=== PATIENT | female | born 1945 | race Caucasian/White ===

== ENCOUNTER 2018-06-24 22:05 | Emergency (ER) | payer OTHER ==
[~2018-06-24] VITALS: Ht 157.5 cm; Wt 63.5 kg
[2018-06-24 22:13] VITALS: BP_SYST 169
--- NOTE | 2018-06-24 22:13 | NUR ---
Placed in room 07 . Placed on residential monitor, blood pressure machine and pulse oximeter. To gown for exam. Side rails up.
--- NOTE | 2018-06-24 22:15 | NUR ---
Pt AAOx4 presents to ED via wheelchair c/o weakness, trembling, shaking s/p dinner with family possibily related to fibromyalgia flare up. Pt denies pain at the moment. Skin pink dry and warm, breathing even and unlabored. No other injuries/complaints per pt/notd. Will continue to monitor.
[2018-06-24] MEDS ORDERED: NACL 0.9% 1,000 ML IV ONE ×2 (22:45→23:30)
[2018-06-24] MEDS ORDERED: ACETAMINOPHEN 500 MG TABLET PO ONE (22:45)
--- NOTE | 2018-06-24 22:48 | NUR ---
ER Dr. Beltran at bedside examining patient.
[2018-06-24 22:59] LABS: BASOPHILS % (AUTO) 0.1 % (0.0-2.0); EOSINOPHILS # (AUTO) 0.1 K/uL (0.0-0.4); EOSINOPHILS % (AUTO) 1.6 % (0.0-4.0); HEMATOCRIT 40.2 % (36-48); HEMOGLOBIN 13.5 g/dL (12.0-16.0); LYMPHOCYTES # (AUTO) 0.3 K/uL (1.0-5.5); LYMPHOCYTES % (AUTO) 5.4 % (20.5-51.5); MEAN CORPUSCULAR HEMOGLOBIN 31 pg (27-31); MEAN CORPUSCULAR HGB CONC 34 % (32-36); MEAN CORPUSCULAR VOLUME 91 fL (79.0-98.0); MONOCYTES # (AUTO) 0.2 K/uL (0.0-1.0); MONOCYTES % (AUTO) 3.5 % (1.7-9.3); NEUTROPHILS # (AUTO) 4.8 K/uL (1.8-7.7); NEUTROPHILS % (AUTO) 89.4 % (40.0-70.0); PLATELET COUNT (AUTO) 63 K/uL (130-430); RED BLOOD CELL COUNT(AUTO) 4.41 MIL/uL (4.2-6.2); RED CELL DISTRIBUTION WIDTH 12.9 % (9.0-15.0); WHITE BLOOD COUNT (AUTO) 5.4 K/uL (4.8-10.8)
--- NOTE | 2018-06-24 23:02 | NUR ---
Pt ambulated with nonslip shoes and steady gait to bathroom to provide urine sample. Urine sample sent to lab. Pt assisted back to bed to a position of comfort.
[2018-06-24 23:20] LABS: BILIRUBIN,URINE NEGATIVE (NEGATIVE); COLOR,URINE YELLOW (YELLOW); GLUCOSE,URINE NEGATIVE (NEGATIVE); KETONES,URINE NEGATIVE (NEGATIVE); LEUKOCYTE ESTERASE ,URINE 2+ (NEGATIVE); NITRITE, URINE POSITIVE (NEGATIVE); PROTEIN URINE NEGATIVE (NEGATIVE); UROBILINOGEN,URINE 0.2 (0.2-1.0)
[2018-06-24 23:23] LABS: ANION GAP 9 (5-15); CHLORIDE 105 mmol/L (98-107); CREATININE 0.96 mg/dL (0.55-1.30); GLUCOSE 157 mg/dL (70-99); POTASSIUM 4.5 mmol/L (3.5-5.1); SODIUM SERUM 140 mmol/L (136-145); UREA NITROGEN, BLOOD 12 mg/dL (8-21)
[2018-06-24 23:23] LABS: BLOOD, URINE TRACE (NEGATIVE)
[2018-06-24 23:24] LABS: INR 1.1 (0.8-1.2); PROTHROMBIN TIME 10.8 SECS (9.5-12.5)
[2018-06-24 23:29] LABS: ALANINE AMINOTRANSFERASE 45 U/L (12-78); ALBUMIN 3.8 g/dL (3.4-4.8); ASPARTATE AMINOTRANSFERASE 42 U/L (10-37)
[2018-06-24 23:42] LABS: CLARITY/URINE SLIGHTLY HAZY (CLEAR)
[2018-06-24 23:43] LABS: BACTERIA,URINE MODERATE /HPF (None Seen); WBC,URINE 20-50 /HPF (0-3)
[2018-06-25] MEDS ORDERED: LEVOFLOXACIN 500 MG/D5W 100 ML IV ONE
--- NOTE | 2018-06-25 00:20 | NUR ---
No adverse reactions noted after medication administration. Will continue to monitor.
[2018-06-25 01:13] VITALS: BP_SYST 148
--- NOTE | 2018-06-25 01:13 | NUR ---
Patient given written and verbal discharge instructions and verbalizes understanding. ER MD discussed with patient the results and treatment provided. Patient in stable condition. ID arm band removed. IV catheter removed intact and dressing applied, no active bleeding. Rx of Cipro given. Patient educated on pain management and to follow up with PMD. Pain Scale 2/10 tolerable to patient. Opportunity for questions provided and answered. Medication side effect fact sheet provided.
== END 2018-06-25 01:13 | disposition home or self-care (01) ==
LOC: SED 22:05
DX: N39.0 Urinary tract infection, site not specified (principal); M79.7 Fibromyalgia; R03.0 Elevated blood-pressure reading, without diagnosis of hypertension; R00.0 Tachycardia, unspecified; D69.6 Thrombocytopenia, unspecified; R73.9 Hyperglycemia, unspecified
CPT/HCPCS: 96365; 36415; 71045; 80053; 81000; 83605; 84484; 85025; 85610; 85730; 87040; 87086; 87186; 93005; 99284; J1956; J7030

== ENCOUNTER 2018-06-27 15:22 | Emergency (ER) | payer OTHER ==
[~2018-06-27] VITALS: Ht 157.5 cm; Wt 63.5 kg
[2018-06-27 15:30] VITALS: BP_SYST 162
--- NOTE | 2018-06-27 15:35 | NUR ---
Patient triaged and placed in waiting room. VSS and patient appears in no acute distress at this time. Accompanied by family, awaiting available bed, and MD notified of need for MSE.
--- NOTE | 2018-06-27 16:24 | NUR ---
Patient to ER bed 8 for evaluation.
--- NOTE | 2018-06-27 16:35 | NUR ---
PATIENT SITTING UP ON CHAIR. AAOx4. RESPIRATIONS EVEN AND UNLABORED. NO SOB. DENIES OF ANY CHEST PAIN. PT WITH C/O UNIMPROVED LEFT FLANK PAIN x4 DAYS. PT LAST SEEN IN THE ED 06/24/2018 FOR UTI. PT CONTINUES TO TAKE HER ANTIBIOTIC PILLS. DENIES OF ANY FEVERS. DENIES OF ANY HEAVY LIFTING OR RECENT INJURIES. PT STILL WITH URINARY FREQUENCY AND URGENCY. NO DYSURIA OR HEMATURIA. NO OBJECTIVE S/SX OF PAIN OBSERVED. PT IN NO ACUTE DISTRESS. MD AWARE OF PT CONDITION AND CHIEF COMPLAINT. AWAITING MD ORDERS.
[2018-06-27 16:42] LABS: BILIRUBIN,URINE NEGATIVE (NEGATIVE); CLARITY/URINE CLEAR (CLEAR); COLOR,URINE YELLOW (YELLOW); GLUCOSE,URINE NEGATIVE (NEGATIVE); KETONES,URINE NEGATIVE (NEGATIVE); LEUKOCYTE ESTERASE ,URINE NEGATIVE (NEGATIVE); NITRITE, URINE NEGATIVE (NEGATIVE); PROTEIN URINE NEGATIVE (NEGATIVE); UROBILINOGEN,URINE 0.2 (0.2-1.0)
[2018-06-27 17:00] LABS: BLOOD, URINE TRACE (NEGATIVE)
--- NOTE | 2018-06-27 17:00 | NUR ---
ER Dr. BERMUDEZ at bedside examining patient.
[2018-06-27 17:23] LABS: BACTERIA,URINE FEW /HPF (None Seen); RBC,URINE 0-3 /HPF (0-3)
[2018-06-27 17:25] LABS: COARSE GRANULAR CASTS,URINE 0-10 /LPF (None Seen); MUCUS,URINE None Seen /LPF (None Seen)
[2018-06-27] MEDS ORDERED: MORPHINE 4 MG/ML INJ. SYRINGE IVP ONE (17:30)
[2018-06-27] MEDS ORDERED: NACL 0.9% 1,000 ML IV ONE (17:30)
[2018-06-27] MEDS ORDERED: ONDANSETRON HCL 4 MG/2 ML VIAL IVP ONE (17:30)
[2018-06-27 17:40] LABS: BASOPHILS % (AUTO) 0.5 % (0.0-2.0); EOSINOPHILS % (AUTO) 1.2 % (0.0-4.0); HEMATOCRIT 39.1 % (36-48); HEMOGLOBIN 13.1 g/dL (12.0-16.0); LYMPHOCYTES # (AUTO) 0.7 K/uL (1.0-5.5); LYMPHOCYTES % (AUTO) 17.8 % (20.5-51.5); MEAN CORPUSCULAR HEMOGLOBIN 31 pg (27-31); MEAN CORPUSCULAR HGB CONC 34 % (32-36); MEAN CORPUSCULAR VOLUME 91 fL (79.0-98.0); MONOCYTES # (AUTO) 0.7 K/uL (0.0-1.0); MONOCYTES % (AUTO) 16.9 % (1.7-9.3); NEUTROPHILS # (AUTO) 2.5 K/uL (1.8-7.7); NEUTROPHILS % (AUTO) 63.6 % (40.0-70.0); RED BLOOD CELL COUNT(AUTO) 4.29 MIL/uL (4.2-6.2); RED CELL DISTRIBUTION WIDTH 12.5 % (9.0-15.0); WHITE BLOOD COUNT (AUTO) 3.9 K/uL (4.8-10.8)
--- NOTE | 2018-06-27 17:40 | NUR ---
MORPHINE AND ZOFRAN ADMINISTERED. TOELRATED WELL. PLEASE SEE EMAR FOR DETAILS. IV FLUIDS OF NS INITIATED. TOLERATED WELL. PLEASE SEE EMAR FOR DETAILS.
[2018-06-27 17:41] LABS: PLATELET COUNT (AUTO) 59 K/uL (130-430)
[2018-06-27 18:02] LABS: ANION GAP 7 (5-15); CHLORIDE 103 mmol/L (98-107); CREATININE 1.19 mg/dL (0.55-1.30); GLUCOSE 122 mg/dL (70-99); POTASSIUM 4.5 mmol/L (3.5-5.1); SODIUM SERUM 136 mmol/L (136-145); UREA NITROGEN, BLOOD 11 mg/dL (8-21)
[2018-06-27 18:06] LABS: ALANINE AMINOTRANSFERASE 55 U/L (12-78); ALBUMIN 3.7 g/dL (3.4-4.8); ASPARTATE AMINOTRANSFERASE 29 U/L (10-37); LIPASE 153 U/L (73-393); TOTAL BILIRUBIN 1.7 mg/dL (0.0-1.0)
--- NOTE | 2018-06-27 18:15 | NUR ---
PATIENT VERBALIZED RELIEF FROM NAUSEA. NO EPISODES OF VOMITING. PATIENT VERBALIZED RELIEF FROM LEFT FLANK PAIN. PAIN = 2/10; TOLERABLE VERBALIZED. NO OBJECTIVE S/SX OF PAIN. REST AND RELAXATION ENCOURAGED. PT RESTING COMFORTABLY ON EXAM BED. PT IN NO ACUTE DISTRESS.
[2018-06-27 18:49] VITALS: BP_SYST 158
== END 2018-06-27 18:45 | disposition home or self-care (01) ==
LOC: SED 15:22
DX: M54.5 Low back pain (principal); M79.7 Fibromyalgia; R03.0 Elevated blood-pressure reading, without diagnosis of hypertension
CPT/HCPCS: 36415; 80053; 81000; 83690; 85025; 96374; 96375; 99283; J2270; J2405; J7030